=== PATIENT | male | born 1995 | race Caucasian/White ===

== ENCOUNTER 2017-09-05 16:04 | Observation (INO) | payer BC ==
[~2017-09-05] VITALS: Ht 172.7 cm; Wt 82.3 kg
[2017-09-05 16:06] VITALS: BP 161/78; PULSE 104; RESP 20; TEMP 99.7; O2SAT 100
--- NOTE | 2017-09-05 16:52 | PD ---
HPI Chief Complaint: Injury Time Seen by Provider: 16:40 Travel History International Travel<30 days: No Contact w/Intl Traveler<30days: No Traveled to known affect area: No History of Present Illness HPI 21-year-old male presents to the emergency Department with complaint of left forearm pain from landing on it while playing football. He is here with his football coaches and they have splinted the left arm for support. The head men's tennis coach states it appears to be deformed and he also bruising to the left forearm. Denies open wounds. She reports paresthesias. Denies loss of sensation. Denies left elbow pain, wrist pain, shoulder pain. Has not taken any medications to alleviate symptoms. Rates pain 9/10. Described as throbbing. Pain is aggravated with palpation and movement. No known allergies. Primary care provider is Dr. Bingham in [place]. Denies significant past medical history. Has no other medical complaints. No other modifying factors or associated signs and symptoms. PFSH Past Medical History Medical History: Denies Significant Hx Past Surgical History Surgical History: No Previous Surgery Social History Alcohol Use: Yes ([facility]) Tobacco Use: No Substance Use: No Allergies-Medications (Allergen,Severity, Reaction): Coded Allergies: No Known Allergies (Unverified , 09/05/17) Review of Systems Except as stated in HPI: all other systems reviewed are Neg Physical Exam Narrative GENERAL: Well-nourished, well-developed male patient, in no acute distress SKIN: Warm and dry. HEAD: Atraumatic. Normocephalic. EYES: Pupils equal and round. No scleral icterus. No injection or drainage. ENT: Mucosa pink and moist. Airway patent. NECK: Trachea midline. CARDIOVASCULAR: Regular rate. RESPIRATORY: No accessory muscle use. GASTROINTESTINAL: Flat. MUSCULOSKELETAL: Left forearm arm appears with deformity; ecchymosis noted to the to the forearm area just below the elbow; no open wounds noted; supple and non-tense; left hand with full range of motion and sensory intact to all fingers ; 2+ radial pulse. No clubbing. No cyanosis. NEUROLOGICAL: Awake and alert. Oriented 3. No obvious cranial nerve deficits. Motor grossly within normal limits. Normal speech. PSYCHIATRIC: Appropriate mood and affect; insight and judgment normal. Data Data Last Documented VS Vital Signs Date Time Temp Pulse Resp B/P (MAP) Pulse Ox O2 Delivery O2 Flow Rate FiO2 09/05/17 16:06 99.7 104 20 161/78 (105) 100 Room Air Orders Orders Forearm (2vws) (09/05/17 ) Morphine Inj (Morphine Inj) (09/05/17 17:00) Ondansetron Inj (Zofran Inj) (09/05/17 17:00) Iv Access Insert/Monitor (09/05/17 16:51) Splint Or Brace Apply/Monitor (09/05/17 17:58) Sling Cradle Arm (09/05/17 ) Consult Orthopedic (09/05/17 ) Basic Metabolic Panel (Bmp) (09/05/17 17:58) Complete Blood Count With Diff (09/05/17 17:58) Prothrombin Time / Inr (Pt) (09/05/17 17:58) Act Partial Throm Time (Ptt) (09/05/17 17:58) Chest, Single Ap (09/05/17 17:58) Npo After Midnight W/ Po Meds (09/05/17 Dinner) Morphine Inj (Morphine Inj) (09/05/17 18:00) Diet Regular Basic (09/05/17 Dinner) Acetamin-Hydrocod 325-5 Mg ([place] 5-325 (09/05/17 18:30) Acetamin-Hydrocod 325-7.5 Mg ([place] 7.5 (09/05/17 18:30) Naloxone Inj (Narcan Inj) (09/05/17 18:30) Admit Order (Ed Use Only) (09/05/17 18:20) MDM Medical Decision Making Medical Screen Exam Complete: Yes Emergency Medical Condition: Yes Medical Record Reviewed: Yes Differential Diagnosis Facture, sprain, contusion Narrative Course 21-year-old male with left forearm injury. Forearm x-ray ordered in triage. IV , Morphine, Zofran ordered. 1749: Left forearm x-ray concludes mid diaphyseal oblique displaced radius and ulnar fractures. Call placed to orthopedic surgeon. 1756: Spoke with Dr. Little and he recommends for the patient to be admitted, nothing by mouth after midnight and to splint the arm. [facility] contacted and long-arm splint ordered. 1820: I spoke with Dr. Goetz and report given for patient admission. Physician Communication Physician Communication Dr. Goetz, HALEY De La Cruz, orthopedic surgeon Diagnosis Primary Impression: Fracture of left radius and ulna Qualified Codes: S52.92XA - Unspecified fracture of left forearm, initial encounter for closed fracture; S52.202A - Unspecified fracture of shaft of left ulna, initial encounter for closed fracture Admitting Information Admitting Physician Requests: Admit Stacie Govea Sep 05, 2017 16:52
[2017-09-05] MEDS ORDERED: MORPHINE SULFATE 4 MG/ML INJ IV PUSH ONE ×2 (17:00→18:00)
[2017-09-05] MEDS ORDERED: ONDANSETRON HCL 4 MG/2 ML VIAL IV PUSH ONE (17:00)
--- NOTE | 2017-09-05 17:40 | RADRPT ---
EXAM DATE/TIME: 09/05/2017 17:13 [facility] COMPARISON: No previous studies available for comparison. INDICATIONS : Left forearm obvious deformity post football injury. MEDICAL HISTORY : None. SURGICAL HISTORY : None. ENCOUNTER: Initial ACUITY: 1 day PAIN SCORE: 10/10 LOCATION: Left upper extremity FINDINGS: 3 views of the left forearm demonstrate oblique fractures of the mid radial and ulnar diaphyses with approximately 8 mm of displacement of the distal radial fragment and posterior angulation of the dist al ulnar fragment. No other acute finding is identified. No soft tissue abnormality or opaque foreign body is identified. CONCLUSION: Mid diaphyseal oblique displaced radius and ulnar fractures. Lake Jones MD on September 05, 2017 at 17:37 Board Certified Radiologist. This report was verified electronically.
[2017-09-05] MEDS ORDERED: ONDANSETRON HCL 4 MG/2 ML VIAL IVP PRN (18:30)
[2017-09-05] MEDS ORDERED: SODIUM CHLORIDE 0.9% FLUSH 10 ML FLUSH IV FLUSH PRN (18:30)
[2017-09-05] MEDS ORDERED: ACETAMINOPHEN/HYDROcodone 325 MG/5 MG TAB PO PRN (18:30)
[2017-09-05] MEDS ORDERED: NALOXONE HCL 0.4 MG/ML AMP IV PUSH PRN ×2 (18:30)
[2017-09-05] MEDS ORDERED: SENNOSIDES 8.6 MG TAB PO PRN (18:30)
[2017-09-05] MEDS ORDERED: LACTULOSE SYRUP 20 GM/30 ML CUP PO PRN (18:30)
[2017-09-05] MEDS ORDERED: MAGNESIUM HYDROXIDE SUSP 30 ML CUP PO PRN (18:30)
[2017-09-05] MEDS ORDERED: BISACODYL 10 MG SUPP RECTAL PRN (18:30)
[2017-09-05 18:49] LABS: AUTOMATED NEUTROPHIL # 11.6 TH/MM3 (1.8-7.7); BASOPHIL % 0.3 % (0.0-2.0); EOSINOPHIL % 0.2 % (0.0-4.0); HEMATOCRIT 42.7 % (39.0-51.0); HEMO FLAGS DIFF FINAL; LYMPH % 8.5 % (9.0-44.0); LYMPHOCYTE # 1.1 TH/MM3 (1.0-4.8); MEAN CELL VOLUME 88.2 FL (80.0-100.0); MEAN CORPUSCULAR HEMOGLOBIN 29.7 PG (27.0-34.0); MEAN CORPUSCULAR HGB CONC 33.7 % (32.0-36.0); MONO % 4.3 % (0.0-8.0); NEUT % 86.7 % (16.0-70.0); PLATELET COUNT 223 TH/MM3 (150-450); RED BLOOD COUNT 4.84 MIL/MM3 (4.50-5.90); RED CELL DISTRIBUTION WIDTH 13.5 % (11.6-17.2); WHITE BLOOD COUNT 13.3 TH/MM3 (4.0-11.0)
[2017-09-05 19:07] LABS: APTT (PATIENT) 24.3 SEC (24.3-30.1); INTERNATIONAL NORMALIZED RATIO 1.1 RATIO; PROTHROMBIN TIME - PATIENT 11.2 SEC (9.8-11.6)
--- NOTE | 2017-09-05 19:12 | RADRPT ---
EXAM DATE/TIME: 09/05/2017 18:30 [facility] COMPARISON: No previous studies available for comparison. INDICATIONS : Pre-operative for left forearm. Evaluate for pneumonia, pneumothorax, or communicable disease. MEDICAL HISTORY : None. SURGICAL HISTORY : None. ENCOUNTER: Initial ACUITY: 1 day PAIN SCORE: 0/10 LOCATION: Bilateral chest FINDINGS: A single view of the chest demonstrates the lungs to be symmetrically aerated without evidence of mas s, infiltrate or effusion. The cardiomediastinal contours are unremarkable. Osseous structures are intact. CONCLUSION: No acute disease. Efrain Butts MD on September 05, 2017 at 19:10 Board Certified Radiologist. This report was verified electronically.
[2017-09-05 19:16] LABS: POTASSIUM 3.9 MEQ/L (3.5-5.1)
[2017-09-05 19:28] VITALS: BP 137/70; PULSE 83; RESP 19; TEMP 98.2; O2SAT 98
[2017-09-05] MEDS: ACETAMINOPHEN/HYDROcodone 325 MG/7.5 MG TAB PO PRN (19:54)
[2017-09-05] MEDS: DOCUSATE SODIUM 50 MG/SENNA 8.6 MG TAB PO SCH (19:54)
[2017-09-05] MEDS: SODIUM CHLORIDE 0.9% FLUSH 10 ML FLUSH IV FLUSH SCH (19:54)
--- NOTE | 2017-09-05 21:43 | HHI.HP ---
[facility] Primary Care Physician Unknown Admission Diagnosis left radius and ulnar fractures Diagnoses: Travel History International Travel<30 Days: No Contact w/Intl Traveler <30 Da: No Traveled to Known Affected Are: No History of Present Illness 21-year-old male with no significant past medical history presents following left arm injury during a football match. He says he had his leg slipped out from under him, and felt with his entire weight on left arm. X-ray performed in the ER shows left radial and ulnar fracture, which will require surgery. Patient denies any chest pain or shortness of breath. Denies any nausea or vomiting. Reports pain is currently controlled. Review of Systems Except as stated in HPI: all other systems reviewed are Neg Past Family Social History Past Medical History Patient denies any past medical history Past Surgical History Patient denies any past surgical history. Reported Medications patient denies taking any medications Allergies: Coded Allergies: No Known Allergies (Unverified , 09/05/17) Family History Patient reports that both parents are healthy. Social History Patient denies smoking. He does report occasional social alcohol use. Denies any illicit drug use. Physical Exam Vital Signs Vital Signs Date Time Temp Pulse Resp B/P (MAP) Pulse Ox O2 Delivery O2 Flow Rate FiO2 09/05/17 19:28 98.2 83 19 137/70 (92) 98 09/05/17 16:06 99.7 104 20 161/78 (105) 100 Room Air Physical Exam GENERAL: This is a well-nourished, well-developed patient, in no apparent distress.alert and oriented 3. SKIN: No rashes, ecchymoses or lesions. Cool and dry. HEAD: Atraumatic. Normocephalic. No temporal or scalp tenderness. EYES: Pupils equal round and reactive. Extraocular motions intact. No scleral icterus. No injection or drainage. ENT: Nose without bleeding, purulent drainage or septal hematoma. Throat without erythema, tonsillar hypertrophy or exudate. Uvula midline. Airway patent. NECK: Trachea midline. No JVD or lymphadenopathy. Supple, nontender, no meningeal signs. CARDIOVASCULAR: Regular rate and rhythm without murmurs, gallops, or rubs. RESPIRATORY: Clear to auscultation. Breath sounds equal bilaterally. No wheezes , rales, or rhonchi. GASTROINTESTINAL: Abdomen soft, non-tender, nondistended. No hepato-splenomegaly , or palpable masses. No guarding. MUSCULOSKELETAL: Extremities without clubbing, cyanosis, or edema. No joint tenderness, effusion, or edema noted. No calf tenderness. Negative Homans sign bilaterally. NEUROLOGICAL: Awake and alert. Cranial nerves II through XII intact. Motor and sensory grossly within normal limits. left arm immobilized in splint. Distal perfusion intact. Distal sensation intact left arm. Normal speech. Laboratory Laboratory Tests Test 09/05/17 18:07 White Blood Count 13.3 Red Blood Count 4.84 Hemoglobin 14.4 Hematocrit 42.7 Mean Corpuscular Volume 88.2 Mean Corpuscular Hemoglobin 29.7 Mean Corpuscular Hemoglobin Concent 33.7 Red Cell Distribution Width 13.5 Platelet Count 223 Mean Platelet Volume 9.9 Neutrophils (%) (Auto) 86.7 Lymphocytes (%) (Auto) 8.5 Monocytes (%) (Auto) 4.3 Eosinophils (%) (Auto) 0.2 Basophils (%) (Auto) 0.3 Neutrophils # (Auto) 11.6 Lymphocytes # (Auto) 1.1 Monocytes # (Auto) 0.6 Eosinophils # (Auto) 0.0 Basophils # (Auto) 0.0 CBC Comment DIFF FINAL Differential Comment Prothrombin Time 11.2 Prothromb Time International Ratio 1.1 Activated Partial Thromboplast Time 24.3 Blood Urea Nitrogen 16 Creatinine 1.34 Random Glucose 90 Calcium Level 9.8 Sodium Level 139 Potassium Level 3.9 Chloride Level 105 Carbon Dioxide Level 29.0 Anion Gap 5 Estimat Glomerular Filtration Rate 67 Result Diagram: 09/05/17 1807 09/05/17 180 Imaging Last Impressions Chest X-Ray 09/05/17 1758 Signed Impressions: Service Date/Time: Tuesday, September 05, 2017 18:30 - CONCLUSION: No acute disease. Efrain Butts MD Radius/Ulna X-Ray 09/05/17 0000 Signed Impressions: Service Date/Time: Tuesday, September 05, 2017 17:13 - CONCLUSION: Mid diaphyseal oblique displaced radius and ulnar fractures. MD Jackson Chiu VTE Risk Assessment Jackson VTE Risk Assessment: No/Low Risk (score <= 1) Levonrini Risk Assessment Model Point Value = 1 Point Value = 2 Point Value = 3 Point Value = 5 Age 41-60 Minor surgery BMI > 25 kg/m2 Swollen legs Varicose veins or History of unexplained or recurrent spontaneous Oral contraceptives or hormone replacement Sepsis (< 1 month) Serious lung disease, including pneumonia (< 1 month) Abnormal pulmonary function Acute myocardial infarction Congestive heart failure (< 1 month) History of inflammatory bowel disease Medical patient at bed rest Age 61-74 Arthroscopic surgery Major open surgery (> 45 min) Laparoscopic surgery (> 45 min) Malignancy Confined to bed (> 72 hours) Immobilizing plaster cast Central venous access Age >= 75 History of VTE Family history of VTE Factor V Leiden Prothrombin [id number] Lupus anticoagulant Anticardiolipin antibodies Elevated serum homocysteine Heparin-induced thrombocytopenia Other congenital or acquired thrombophilia Stroke (< 1 month) Elective arthroplasty Hip, pelvis, or leg fracture Acute spinal cord injury (< 1 month) Prophylaxis Regimen Total Risk Factor Score Risk Level Prophylaxis Regimen 0-1 Low Early ambulation 2 Moderate Order ONE of the following: *Sequential Compression Device (SCD) *Heparin 5000 units SQ BID 3-4 Higher Order ONE of the following medications: *Heparin 5000 units SQ TID *Enoxaparin/Lovenox 40 mg SQ daily (WT < 150 kg, CrCl > 30 mL/min) *Enoxaparin/Lovenox 30 mg SQ daily (WT < 150 kg, CrCl > 10-29 mL/min) *Enoxaparin/Lovenox 30 mg SQ BID (WT < 150 kg, CrCl > 30 mL/min) AND/OR *Sequential Compression Device (SCD) 5 or more Highest Order ONE of the following medications: *Heparin 5000 units SQ TID (Preferred with Epidurals) *Enoxaparin/Lovenox 40 mg SQ daily (WT < 150 kg, CrCl > 30 mL/min) *Enoxaparin/Lovenox 30 mg SQ daily (WT < 150 kg, CrCl > 10-29 mL/min) *Enoxaparin/Lovenox 30 mg SQ BID (WT < 150 kg, CrCl > 30 mL/min) AND *Sequential Compression Device (SCD) Assessment and Plan Assessment and Plan //Left radial/ulnar fracture. -immobilized in the ER.Have ordered narcotics for pain control Consult orthopedics. Nothing by mouth at midnight except for meds. //Leukocytosis. White blood cell 13.3 on admission Likely stress related. No signs of infection. Continue to monitor. //Renal insufficiency. Creatinine 1.3. Unknown baseline. Possibly secondary to dehydration. IV hydration. Continue to monitor. //Hypertensive on presentation. Systolic blood pressure 160s. Together with tachycardia in the 100s. This is likely secondary to pain. This improved with pain control. Continue to monitor. Discussed Condition With patient, nurse, ED physician. Joey Goetz MD Sep 05, 2017 21:43
[2017-09-05 23:47] VITALS: BP 125/57; PULSE 78; RESP 18; TEMP 98.1; O2SAT 96
[2017-09-06] MEDS: ACETAMINOPHEN/HYDROcodone 325 MG/7.5 MG TAB PO PRN ×5 (00:05→22:32)
[2017-09-06 04:51] VITALS: BP 128/74; PULSE 60; RESP 18; TEMP 96.7; O2SAT 99
[2017-09-06] MEDS ORDERED: SODIUM CHLORID 0.9% 500 ML IV PRN ×2 (06:45→07:00)
[2017-09-06] MEDS ORDERED: CHLORHEXIDINE GLUCONATE 2 % 1 PACK (2 CLOTHS) TOPICAL PRN ×2 (06:45→07:00)
[2017-09-06] MEDS ORDERED: LACTATED RINGER'S 1000 ML IV PRN ×2 (06:45→07:00)
[2017-09-06] MEDS ORDERED: POVIDONE IODINE 5% (ANTISEPSIS KIT) 4 APPLICATIONS EACH NARE PRN ×2 (06:45→07:00)
[2017-09-06] MEDS ORDERED: METOPROLOL TARTRATE 25 MG TAB PO PRN ×2 (06:45→07:00)
[2017-09-06] MEDS ORDERED: INSULIN HUMAN REGULAR 1,000 UNITS/10 ML VIAL SQ PRN ×2 (06:45→07:00)
[2017-09-06 07:04] LABS: BICARBONATE 30.9 MEQ/L (21.0-32.0); POTASSIUM 3.8 MEQ/L (3.5-5.1)
[2017-09-06 08:00] VITALS: BP 131/58; PULSE 57; RESP 20; TEMP 97.6; O2SAT 99
[2017-09-06] MEDS: DOCUSATE SODIUM 50 MG/SENNA 8.6 MG TAB PO SCH ×2 (09:09→22:32)
[2017-09-06] MEDS: SODIUM CHLORIDE 0.9% FLUSH 10 ML FLUSH IV FLUSH SCH ×2 (09:09→22:34)
[2017-09-06] MEDS ORDERED: ACETAMINOPHEN 1000 MG/100 ML 100 ML IV ONE (10:38)
[2017-09-06] MEDS ORDERED: HYDROmorphone HCL PF 2 MG/ML VIAL ONE (10:39)
[2017-09-06] MEDS ORDERED: ONDANSETRON HCL 4 MG/2 ML VIAL IV PUSH PRN (10:45)
[2017-09-06] MEDS ORDERED: GENTAMICIN SULFATE 80 MG/2 ML VIAL ONE (11:08)
[2017-09-06] MEDS ORDERED: ceFAZolin 2 GM PREMIX 50 ML ONE (11:08)
[2017-09-06] MEDS ORDERED: BUPIVACAINE/EPINEPHRINE 0.25% PF 30 ML VIAL ONE (11:08)
[2017-09-06] MEDS ORDERED: VANCOMYCIN HCL 1000 MG VIAL ONE (11:28)
--- NOTE | 2017-09-06 11:42 | MB ---
cc: BHAVIK COE M.D. DATE OF CONSULTATION: 09/06/2017. REASON FOR CONSULTATION: Left forearm fractures. HISTORY OF PRESENT ILLNESS: The patient is a 21-year-old man who is currently visiting from [place]. He was playing an [employer] game. He is a senior in college. He says that at one point during the match his legs slipped out from underneath him. He ended up falling onto an outstretched arm and when he landed noticed immediate pain and deformity about the left arm. He denies any previous problems with these areas in the past. He says that the hand feels cold but he does not have a lot of numbness or tingling specifically. He says other body areas do not hurt at this time. He was splinted. The undersigned was consulted for management. REVIEW OF SYSTEMS: A twelve-point review of systems is negative except as noted in the history of present illness. PAST MEDICAL HISTORY: Negative. PAST SURGICAL HISTORY: None. ALLERGIES: NO KNOWN DRUG ALLERGIES. SOCIAL HISTORY: The patient does not smoke. He drinks occasionally. He is a senior in college. PHYSICAL EXAMINATION: VITAL SIGNS: The patient's temperature is 97.6, pulse is 57, respirations 20, blood pressure 131/58. GENERAL: The patient is awake, alert and oriented times three and has normal insight, affect and judgment in minimal distress due to pain. HEAD, EYES, EARS, NOSE, THROAT: The patient's head is atraumatic. Oropharynx is moist. Extraocular muscles are intact. NECK: The neck is supple. HEART: Regular rate and rhythm. CHEST: The chest wall moves symmetrically with no audible wheezes. ABDOMEN: The abdomen is soft, nontender and nondistended. EXTREMITIES: Bilateral upper extremities show that the left lower extremity is currently splinted. He has brisk capillary refill about the fingers. He has normal sensation to the ulnar, median and superficial radial nerve. He can extend the thumb. He can also extend his fingers, but this is painful. He has pain with attempted passive motion about the fingers. The right upper extremity has good range of motion of the shoulder, elbow and wrist. The left shoulder has no tenderness. Bilateral lower extremities have normal alignment, good range of motion and no tenderness. BACK: No costovertebral angle tenderness. LABORATORY DATA: Shows white cell count 13.3, hematocrit 47.7. Creatinine is 1.34. X-RAYS: Reviewed the report and the images of the left forearm that show that there is a mid to proximal third fracture of the radius and ulna, which are both displaced and angulated. No degenerative changes are noted. IMPRESSION: Left forearm both bone, ulna and radius, fractures with displacement and angulation. DECISION-MAKING: We talked about the current findings. These are significant findings as far as the arm is concerned. Nonoperative management would likely achieve extremely poor results with significant dysfunction and malalignment and loss of range of motion of the forearm and wrist. I do not recommend nonoperative management given the significant poor outcomes that likely would be obtained with this. Therefore, I have recommended surgical management for open reduction internal fixation of the radius and the ulna. He understands that there are some particular arteries and nerves that are at risk with the exposure to these bones. He understands there are risks of surgery to include but not be limited to injury to nerves, blood vessels, bleeding, infection, failure of hardware, need for re-operation, continued pain, loss of range of motion of associated joints, medical complications such as heart attack, stroke and . All questions have been answered and we are going to move forward with surgical management. Bhavik Coe MD /CHARITO /11:08 AM /11:16 AM
[2017-09-06] MEDS ORDERED: DEXAMETHASONE SOD PHOS 4 MG/ML VIAL IV ONE (12:00)
[2017-09-06] MEDS ORDERED: ePHEDrine/NS 25 MG/5 ML SYR IV ONE (12:00)
[2017-09-06] MEDS ORDERED: MIDAZOLAM HCL 2 MG/2 ML VIAL IV ONE (12:00)
[2017-09-06] MEDS ORDERED: PROPOFOL 200 MG/20 ML AMP IV ONE (12:00)
[2017-09-06] MEDS ORDERED: ONDANSETRON HCL 4 MG/2 ML VIAL IV ONE (12:00)
[2017-09-06] MEDS ORDERED: SODIUM CHLOR 0.9% 250 ML INJ 250 ML IV ONE (12:00)
[2017-09-06] MEDS ORDERED: LIDOCAINE HCL 1% PF 5 ML SYRINGE OTHER ONE (12:00)
[2017-09-06] MEDS ORDERED: MISCELLANEOUS NURSING INFORMATION XX PRN (13:00)
[2017-09-06] MEDS ORDERED: MAGNESIUM HYDROXIDE SUSP 30 ML CUP PO PRN (13:00)
[2017-09-06] MEDS ORDERED: ACETAMINOPHEN/HYDROcodone 325 MG/7.5 MG TAB PO PRN (13:00)
[2017-09-06] MEDS ORDERED: diphenhydrAMINE HCL 25 MG CAP PO PRN (13:00)
[2017-09-06] MEDS ORDERED: NALOXONE HCL 0.4 MG/ML AMP IV PUSH PRN (13:00)
[2017-09-06] MEDS ORDERED: MISCELLANEOUS PHARMACY INFORMATION XX ONE (13:00)
[2017-09-06] MEDS ORDERED: HYDR-3288 PO (13:04)
--- NOTE | 2017-09-06 13:10 | PD.OP ---
cc: Michael De La Cruz MD Operative Report Date of Surgery: Sep 06, 2017 Preoperative Diagnosis: Left forearm radius and ulnar shaft fractures. Postoperative Diagnosis: Same Procedure: Left forearm open reduction and internal fixation of radius and ulnar shaft fractures Anesthesia: Gen. Surgeon: Michael De La Cruz Tobacco Cutter(s): ALEXANDRIA Patel The surgical procedure was assisted by my Advanced Registered Nurse Practitioner. My GALVANIZING POT RUNNER presence was necessary throughout this case for the manipulation and positioning of the surgical extremity. My GALVANIZING POT RUNNER was assisting me throughout the duration of this procedure. The skill set of an Advance Registered Nurse Practitioner was medically necessary to complete this procedure. During the surgical case, the medical surgical tech was working at the back table and the Advance Registered Nurse Practitioner was directly assisting me. Operation and Findings: Tourniquet time: 60 minutes at 250 mmHg of pressure Estimated blood loss: 50 cc The patient received intravenous Ancef. After the appropriate anesthesia was administered, the patient's arm was prepped and draped in the usual sterile fashion. Local anesthetic was given, and the arm was exsanguinated. The tourniquet was raised to 250 mmHg of pressure. We made standard volar incision. We dissected in the standard approach between the brachioradialis and the flexor carpi radialis. We dissected between the superficial radial nerve and the radial artery. We protected the branches of the radial artery. We dissected and reflected the flexor digitorum superficialis and the pronator with the distal fragment and pronation. We identified the proximal fragment and supinated this piece and reflected the supinator off of the ulnar side with it supinated. We protected the posterior interosseous nerve. We anatomically reduced the radial shaft fracture which had a long spike to it. We secured this with a 2.7 lag screw which held it very nicely in anatomic position. We contoured a plate by bending it. We secured this 8 hole plate using 6 screws, nonlocking with excellent purchase. We made standard incision over the ulnar aspect of the forearm. We dissected between the flexor and extensor group. The fracture was only mildly angulated without displacement at this point. We contoured a plate since the bone flared from triangular to flat. We used an 8 hole plate and filled 6 of these holes with nonlocking screws with excellent purchase. We took final fluoroscopic imaging showing anatomic alignment of both bones. The forearm had full range of motion including rotation. Tourniquet was released. Hemostasis was achieved. Skin was closed with 2-0 Vicryl and 2-0 nylon. Given overall stability we decided not to place the patient into a splint and just use soft dressings and a sling. Postoperative plan is early range of motion. Michael De La Cruz MD Sep 06, 2017 13:10
--- NOTE | 2017-09-06 13:28 | RADRPT ---
EXAM DATE/TIME: 09/06/2017 12:47 [facility] COMPARISON: FOREARM LEFT (2VWS), September 05, 2017, 17:13. INDICATIONS : Open reduction internal fixation of left radius and ulna fractures MEDICAL HISTORY : None. SURGICAL HISTORY : None. ENCOUNTER: Initial ACUITY: 1 day PAIN SCORE: Non-responsive. LOCATION: Left mid-shaft radius and ulna FINDINGS: Status post internal fixation for fractures of the radius and ulnar. There is good position and align ment of the fracture fragments. Hardware is grossly intact. CONCLUSION: Good position and alignment on this postoperative study. Vikash Saba MD on September 06, 2017 at 13:26 Board Certified Radiologist. This report was verified electronically.
[2017-09-06] MEDS ORDERED: Post-op Orders (for Pharmacy) XX ONE (13:44)
--- NOTE | 2017-09-06 13:49 | HHI.PR ---
Subjective Remarks To OR today for surgical repair of left forearm fractures. No complaints when seen. No pre-existing medical problems. Objective Vital Signs Date Time Temp Pulse Resp B/P (MAP) Pulse Ox O2 Delivery O2 Flow Rate FiO2 09/06/17 08:00 97.6 57 20 131/58 (82) 99 09/06/17 04:51 96.7 60 18 128/74 (92) 99 09/05/17 23:47 98.1 78 18 125/57 (79) 96 09/05/17 19:28 98.2 83 19 137/70 (92) 98 09/05/17 16:06 99.7 104 20 161/78 (105) 100 Room Air I/O 09/05/17 09/05/17 09/05/17 09/06/17 09/06/17 09/06/17 07:00 15:00 23:00 07:00 15:00 23:00 Intake Total 480 ml 120 ml 800 ml Output Total 50 ml Balance 480 ml 120 ml 750 ml Intake Oral 480 ml 120 ml Other 800 ml Output Estimated Blood Loss 50 ml # Voids 1 3 # Bowel Movements 0 0 Result Diagram: 09/05/17 1807 09/06/17 0536 Objective Remarks GENERAL: A&Ox3 SKIN: Warm and dry. HEAD: Normocephalic. EYES: No scleral icterus. No injection or drainage. NECK: Supple, trachea midline. No JVD or lymphadenopathy. CARDIOVASCULAR: Regular rate and rhythm without murmurs, gallops, or rubs. RESPIRATORY: Breath sounds equal bilaterally. No accessory muscle use. GASTROINTESTINAL: Abdomen soft, non-tender, nondistended. MUSCULOSKELETAL: No cyanosis, or edema. Left arm in a soft cast. BACK: Nontender without obvious deformity. No CVA tenderness. A/P Problem List: (1) Fracture of left radius and ulna ICD Code: S52.92XA - Unspecified fracture of left forearm, initial encounter for closed fracture; S52.202A - Unspecified fracture of shaft of left ulna, initial encounter for closed fracture Status: Acute Assessment and Plan Assessment and Plan 21 year old male admitted with a left arm fracture, for surgical repair. Left Ulna/Radius Fracture Surgical repair today Post op monitoring Monitor for post op nausea Medical clearance pending surgical clearance and no nausea/vomiting Outpatient follow up with be out of state (not from here) Problem Qualifiers (1) Fracture of left radius and ulna: Qualified Codes: S52.92XA - Unspecified fracture of left forearm, initial encounter for closed fracture; S52.202A - Unspecified fracture of shaft of left ulna, initial encounter for closed fracture Nate Brunner MD Sep 06, 2017 13:49
[2017-09-06] MEDS ORDERED: *MEPERIDINE 25 MG INJ VIAL PERIprocedural Use ONLY ONE (13:57)
[2017-09-06] MEDS ORDERED: DO NOT ADM ANY ANTICOAGULANT DRUGS PRN (14:00)
[2017-09-06] MEDS: DEXT 5%-NACL 0.45% 1000 ML INJ 1,000 ML IV SCH ×2 (14:17→23:00)
[2017-09-06] MEDS ORDERED: *morphine SULFATE 8 MG/ML PERIprocedure ONLY ONE (14:19)
[2017-09-06] MEDS: ONDANSETRON HCL 4 MG/2 ML VIAL IVP PRN ×3 (14:45→22:35)
[2017-09-06 15:45] VITALS: O2SAT 98
[2017-09-06 16:00] VITALS: BP 120/64; PULSE 60; RESP 17; TEMP 98.5; O2SAT 97
[2017-09-06] MEDS: MORPHINE SULFATE 4 MG/ML INJ IV PUSH PRN (19:12)
[2017-09-06 20:00] VITALS: BP 112/53; PULSE 62; RESP 18; TEMP 97.3; O2SAT 98
[2017-09-07] VITALS: BP 129/61; PULSE 83; RESP 18; TEMP 98; O2SAT 98
[2017-09-07] MEDS: MORPHINE SULFATE 4 MG/ML INJ IV PUSH PRN ×2 (00:01→02:59)
[2017-09-07 04:00] VITALS: BP 113/53; PULSE 73; RESP 18; TEMP 97.9; O2SAT 97
[2017-09-07] MEDS: ACETAMINOPHEN/HYDROcodone 325 MG/7.5 MG TAB PO PRN ×2 (05:10→11:00)
--- NOTE | 2017-09-07 07:54 | PD.ORT.PN ---
Subjective Post Op Day #: 1 Subjective Remarks Patient is resting in bed in NAD. Patient reports minimal pain. Patient wants to be discharged to go back home to [facility]. Objective Vitals Vital Signs Date Time Temp Pulse Resp B/P (MAP) Pulse Ox O2 Delivery O2 Flow Rate FiO2 09/07/17 04:00 97.9 73 18 113/53 (73) 97 09/07/17 00:00 98.0 83 18 129/61 (83) 98 09/06/17 22:30 98 Room Air 09/06/17 20:00 97.3 62 18 112/53 (72) 98 09/06/17 18:54 Room Air 09/06/17 16:00 98.5 60 17 120/64 (82) 97 09/06/17 15:45 98 21 09/06/17 14:30 98.5 78 15 121/57 (78) 93 Room Air 09/06/17 14:15 69 17 118/58 (78) 95 Room Air 09/06/17 14:00 79 18 108/59 (75) 95 Room Air 09/06/17 13:47 98.4 83 16 101/54 (70) 92 Nasal Cannula 2 09/06/17 08:00 97.6 57 20 131/58 (82) 99 I/O 09/06/17 09/06/17 09/06/17 09/07/17 09/07/17 09/07/17 07:00 15:00 23:00 07:00 15:00 23:00 Intake Total 120 ml 1260 ml 220 ml 580 ml Output Total 50 ml Balance 120 ml 1210 ml 220 ml 580 ml Intake Oral 120 ml 120 ml 480 ml IV Total 10 ml 100 ml 100 ml Other 1250 ml Output Estimated Blood Loss 50 ml # Voids 3 2 4 # Bowel Movements 0 0 Result Diagram: 09/05/17 1807 09/06/17 0536 Procedures Left FA ORIF of Radius and Ulna Objective Remarks Dressing is C/D/I. Sling in place. EPL/APB/SIDDHARTHA intact. No swelling to hand. Assessment & Plan Ortho Post Op Day #: 1 Problem List: Assessment and Plan POD #1: Left FA ORIF of radius and ulna fractures 1. NWB LUE 2. Sling for comfort and support 3. Ice to FA PRN 4. Stable for discharge per ortho. 5. F/U with ortho in [place] Nate Avalos Sep 07, 2017 07:54
[2017-09-07 08:00] VITALS: BP 125/58; PULSE 71; RESP 18; TEMP 98; O2SAT 99
[2017-09-07] MEDS: SODIUM CHLORIDE 0.9% FLUSH 10 ML FLUSH IV FLUSH SCH (09:00)
[2017-09-07] MEDS: DEXT 5%-NACL 0.45% 1000 ML INJ 1,000 ML IV SCH (09:00)
[2017-09-07] MEDS ORDERED: MULTIVITAMINS/MINERALS THERAPEUTIC TAB PO SCH (09:00)
[2017-09-07] MEDS: DOCUSATE SODIUM 50 MG/SENNA 8.6 MG TAB PO SCH (10:24)
--- NOTE | 2017-09-07 11:14 | HHI.DS ---
Discharge Summary Admission Date Sep 05, 2017 at 18:22 Discharge Date: Sep 07, 2017 Admitting Diagnosis left radius and ulnar fractures (1) Fracture of left radius and ulna ICD Code: S52.92XA - Unspecified fracture of left forearm, initial encounter for closed fracture; S52.202A - Unspecified fracture of shaft of left ulna, initial encounter for closed fracture Status: Acute Procedures Surgical repair of left radius and left ulna fractures Brief History - From Admission 21-year-old male with no significant past medical history presents following left arm injury during a football match. He says he had his leg slipped out from under him, and felt with his entire weight on left arm. X-ray performed in the ER shows left radial and ulnar fracture, which will require surgery. Patient denies any chest pain or shortness of breath. Denies any nausea or vomiting. Reports pain is currently controlled. CBC/BMP: 09/05/17 1807 09/06/17 0536 Significant Findings Laboratory Tests Test 09/05/17 18:07 09/06/17 05:36 White Blood Count 13.3 TH/MM3 (4.0-11.0) Neutrophils (%) (Auto) 86.7 % (16.0-70.0) Lymphocytes (%) (Auto) 8.5 % (9.0-44.0) Neutrophils # (Auto) 11.6 TH/MM3 (1.8-7.7) Creatinine 1.34 MG/DL (0.60-1.30) Estimat Glomerular Filtration Rate 67 ML/MIN (>89) 70 ML/MIN (>89) Hospital Course Mr. Nicole is a 21 year old male. He was admitted secondary to a left radius and ulnar fracture. No prior existing medical problems. Surgical repair was performed and patient did well postop. Today he is medically stable for discharge. Pt Condition on Discharge: Stable Discharge Disposition: Discharge Home Discharge Time: <= 30 minutes Discharge Instructions DIET: Follow Instructions for: As Tolerated, No Restrictions Activities you can perform: Weight Bearing as Bridget Follow up Referrals: Orthopedics - 2 Weeks PCP Follow-up - 2 Weeks New Medications: Hydrocodone-Acetaminophen ([place]) 7.5-325 mg Tab 1-2 TAB PO Q4H PRN for PAIN, #60 TAB 0 Refills Nate Brunner MD Sep 07, 2017 11:14
[2017-09-07] MEDS ORDERED: ACETAMINOPHEN/HYDROcodone 325 MG/7.5 MG TAB PO ONE (11:30)
== END 2017-09-07 12:59 | disposition home or self-care (01) ==
LOC: NEPD 16:04 → INTOOBSV 18:22 → NEDA 18:22 → N06A 19:20
PROVIDERS: ADMIT Hospitalist; ATTEND Hospitalist
DX: S52.392A Other fracture of shaft of radius, left arm, initial encounter for closed fracture (principal); S52.292A Other fracture of shaft of left ulna, initial encounter for closed fracture; D72.829 Elevated white blood cell count, unspecified; N28.9 Disorder of kidney and ureter, unspecified; R00.0 Tachycardia, unspecified; X58.XXXA Exposure to other specified factors, initial encounter; Y93.61 Activity, american tackle football; W18.39XA Other fall on same level, initial encounter; R79.89 Other specified abnormal findings of blood chemistry
CPT/HCPCS: 01830; 25575; 29105; 71010; 73090; 76000; 80048; 85025; 85610; 85730; 94150; 96365; 96375; 96376; 99285; C1713; G0378; J0131; J0690; J1100; J1580; J2175; J2250; J2270; J2405; J3010; J3370; J7050; J1170